=== PATIENT | male | born 1990 | race African-American/Black ===

== ENCOUNTER 2017-10-28 06:18 | Emergency (ER) | payer SELFPAY ==
[2017-10-28 06:22] VITALS: BP 137/86
--- NOTE | 2017-10-28 06:46 | ER Document Report ---
ED General - General Chief Complaint: Toothache Stated Complaint: TOOTH PAIN Notes: 26 year male presents with "extreme pain" rated as severe nonradiating to the right lower molar. Slightly better with dental cement that they placed on today. Taking BC powder. No dentist. No history of dental infections. Denies trismus or put trouble swallowing or fever. TRAVEL OUTSIDE OF THE [place] IN LAST 30 DAYS: No - Related Data Allergies/Adverse Reactions: No Known Allergies Allergy (Verified 10/28/17 06:18) Past Medical History - Social History Smoking Status: Never Smoker Family History: None - Immunizations Hx Diphtheria, Pertussis, Tetanus Vaccination: Yes Review of Systems - Review of Systems Notes: REVIEW OF SYSTEMS GEN: Denies fever, chills, weight loss ENT: Tooth pain mouth pain EYES: Denies blurry vision, eye pain, discharge CV: Denies chest pain, palpitations, edema RESP: Denies cough, shortness of breath, wheezing GI: Denies abdominal pain, nausea, vomiting, diarrhea MSK: Denies joint pain/swelling, edema, SKIN: Denies rash, skin lesions LYMPH: Denies swollen glands/lymph nodes NEURO: Denies headache, focal weakness or numbness, dizziness PSYCH: Denies depression, suicidal or homicidal ideation PHYSICAL EXAMINATION General: No acute distress, well-nourished Head: Atraumatic, normocephalic ENT: Mouth normal, oropharynx moist, lips normal. Decay of the right lower molar with cement in place, no gingival redness or fluctuance. No trismus. Eyes: Conjunctiva normal, pupils equal, lids normal Neck: No JVD, supple, no guarding Resp: No resp distress, equal chest rise GI: Nondistended, no guarding Back: No midline or CVA tenderness Ext: No deformities, no edema Skin: Well-perfused, no rash Neuro: Awake, alert. Face symmetric. Physical Exam - Vital signs Vitals: Temp Pulse Resp BP Pulse Ox 98.3 F 59 L 18 137/86 H 98 10/28/17 06:19 10/28/17 06:19 10/28/17 06:19 10/28/17 06:19 10/28/17 06:19 Course - Re-evaluation Re-evalutation: 10/28/17 06:53 Tooth decay causing dentalgia without signs of infection or deep space involvement. Gabapentin Motrin follow-up dentist. I have discussed with the patient there likely diagnosis, aftercare plan, follow -up plans and my usual and customary return precautions. They verbalized understanding of this. - Vital Signs Vital signs: Temp Pulse Resp BP Pulse Ox 98.3 F 59 L 18 137/86 H 98 10/28/17 06:19 10/28/17 06:19 10/28/17 06:19 10/28/17 06:19 10/28/17 06:19 Discharge - Discharge Clinical Impression: Toothache Condition: Good Disposition: HOME, SELF-CARE Instructions: [facility], Toothache (H) Prescriptions: Gabapentin 300 mg PO TID #30 capsule Ibuprofen 200 mg PO Q6 #14 tablet
[2017-10-28] MEDS ORDERED: OXYCODONE-ACETAMINOPHEN 5-325 MG TABLET PO ONE (07:00)
== END 2017-10-28 07:09 | disposition home or self-care (01) ==
LOC: ER 06:18
DX: K02.9 Dental caries, unspecified (principal); K08.89 Other specified disorders of teeth and supporting structures
CPT/HCPCS: 99282

== ENCOUNTER 2018-03-16 16:32 | Emergency (ER) | payer SELFPAY ==
--- NOTE | 2018-03-16 17:38 | ER Document Report ---
HPI - HPI Patient complains to provider of: Sore throat and fever Onset: Other - 2 days Onset/Duration: Better Pain Level: 4 Context: 27-year-old male complaining of a sore throat, odynophagia, fever for 2 days. He actually feels a little better today. Rapid strep is negative that was done in the emergency department today. No abdominal pain nausea or vomiting. No chest pain or shortness of breath. No rash. Associated Symptoms: None Exacerbated by: Other - Swallowing Relieved by: Denies Similar symptoms previously: No Recently seen / treated by doctor: No - ROS ROS below otherwise negative: Yes Systems Reviewed and Negative: Yes All other systems reviewed and negative - CONSTITUTIONAL Constitutional: REPORTS: Fever - yesterday - EENT EENT: REPORTS: Sore Throat Past Medical History - General Information source: Patient - Social History Smoking Status: Current Every Day Smoker Chew tobacco use (# tins/day): No Frequency of alcohol use: Occasional Drug Abuse: None Lives with: Spouse/Significant other Family History: None Patient has suicidal ideation: No Patient has homicidal ideation: No - Medical History Medical History: Negative Renal/ Medical History: Denies: Hx Peritoneal Dialysis Surgical Hx: Negative - Immunizations Hx Diphtheria, Pertussis, Tetanus Vaccination: Yes Vertical Provider Document - CONSTITUTIONAL Agree With Documented VS: Yes Exam Limitations: No Limitations - INFECTION CONTROL TRAVEL OUTSIDE OF THE [place] IN LAST 30 DAYS: No - HEENT HEENT: Pharyngeal Erythema. negative: Conjuctival Injection, Tympanic Membrane Red Notes: Bilateral exudative tonsils - NECK Neck: Supple, Lymphadenopathy-Left, Lymphadenopathy-Right - RESPIRATORY Respiratory: Breath Sounds Normal, No Respiratory Distress - CARDIOVASCULAR Cardiovascular: Regular Rate, Regular Rhythm - GI/ABDOMEN Gastrointestinal: Abdomen Soft, Abdomen Non-Tender, No Organomegaly, Normal Bowel Sounds - MUSCULOSKELETAL/EXTREMETIES Musculoskeletal/Extremeties: MAEW - NEURO Level of Consciousness: Awake, Alert - DERM Integumentary: Warm, Dry, No Rash Course - Re-evaluation Re-evalutation: 03/16/18 17:44 Rapid strep is positive - Vital Signs Vital signs: Temp Pulse Resp BP Pulse Ox 98.0 F 83 16 153/82 H 98 03/16/18 16:48 03/16/18 16:48 03/16/18 16:48 03/16/18 16:48 03/16/18 16:48 Discharge - Discharge Clinical Impression: Streptococcal sore throat Condition: Good Disposition: HOME, SELF-CARE Instructions: Ibuprofen (General) ([facility]), Penicillin V K ([facility]), Sore Throat ([facility] ), Strep Throat ([facility]) Additional Instructions: chloraseptic spray motrin Penicillin until it is gone Tylenol Return to the emergency room any concerns or symptoms worsen Prescriptions: Ibuprofen [Motrin 800 mg Tablet] 800 mg PO Q8HP PRN #30 tablet PRN Reason: Penicillin V Potassium [Penicillin Vk 500 mg Tablet] 500 mg PO QID #40 tablet
[2018-03-16] MEDS ORDERED: IBUPROFEN 800 MG TABLET PO ONE (17:42)
[2018-03-16] MEDS ORDERED: PENICILLIN V POTASSIUM 500 MG TABLET PO ONE (17:42)
[2018-03-16] MEDS ORDERED: ONDANSETRON 4 MG TAB.RAPDIS PO ONE (17:42)
[2018-03-16 18:37] VITALS: BP 133/75
== END 2018-03-16 18:37 | disposition home or self-care (01) ==
LOC: ER 16:32
DX: J02.0 Streptococcal pharyngitis (principal); R13.10 Dysphagia, unspecified; R50.9 Fever, unspecified; F17.200 Nicotine dependence, unspecified, uncomplicated; R56.9 Unspecified convulsions
CPT/HCPCS: 99283; 87880; S0119

== ENCOUNTER 2019-02-01 20:10 | Emergency (ER) | payer SELFPAY ==
[2019-02-01] MEDS ORDERED: ACETAMINOPHEN 325 MG TABLET PO ONE (23:22)
[2019-02-01] MEDS ORDERED: OXYCODONE HCL IR 5 MG TABLET PO ONE (23:30)
[2019-02-01] MEDS ORDERED: HYDROCODONE/ACETAMINOPHEN 5-325 MG (6 TAB/ER DISP) PO PRN (23:36)
--- NOTE | 2019-02-01 23:36 | ER Document Report ---
ED General - General Chief Complaint: Toothache Stated Complaint: TOOTHACHE Time Seen by Provider: 02/01/19 23:27 Mode of Arrival: Ambulatory Information source: Patient TRAVEL OUTSIDE OF THE [place] IN LAST 30 DAYS: No - HPI Patient complains to provider of: Left lower jaw pain Onset: Other - Past couple of days Onset/Duration: Sudden Quality of pain: Sharp, Stabbing Severity: Severe Pain Level: 5 Associated symptoms: denies: Chills, Fever Exacerbated by: Other - Eating/chewing Relieved by: Denies Similar symptoms previously: No Recently seen / treated by doctor: No Notes: 28-year-old -[place] male coming in today with left lower jaw pain. He has a wisdom tooth with a large cavity that is broken off as well. No fevers or chills. No trouble breathing or swallowing. No submandibular or sublingual swelling. No dysphonia dyspnea or dysphagia - Related Data Allergies/Adverse Reactions: No Known Allergies Allergy (Verified 10/28/17 06:18) Past Medical History - General Information source: Patient - Social History Smoking Status: Current Every Day Smoker Chew tobacco use (# tins/day): No Frequency of alcohol use: Occasional Drug Abuse: Marijuana Family History: None, Reviewed & Not Pertinent Patient has suicidal ideation: No Patient has homicidal ideation: No Renal/ Medical History: Denies: Hx Peritoneal Dialysis - Immunizations Hx Diphtheria, Pertussis, Tetanus Vaccination: Yes Review of Systems - Review of Systems Notes: Constitutional: No fevers. No chills. EENT: No eye redness. No eye pain. No ear pain. No sore throat. Positive severe dental pain Cardiovascular: No chest pain. No palpitations. Respiratory: No cough. No shortness of breath. No respiratory distress. Gastrointestinal: No abdominal pain. No nausea, vomiting, or diarrhea. Genitourinary: Atraumatic. No lesions. No pain. No discharge. Musculoskeletal: Atraumatic. No swelling. No deformities. Skin: No rash or lesions. Lymphatic: No swollen lymph nodes. Neurologic: No headache. No syncope. Psychiatric: No suicidal or homicidal ideation. Physical Exam - Vital signs Vitals: Temp Pulse Resp BP Pulse Ox 97.9 F 64 16 145/76 H 99 02/01/19 20:27 02/01/19 20:27 02/01/19 20:27 02/01/19 20:27 02/01/19 20:27 - Notes Notes: General: Well-developed, well-nourished. In no acute distress. Non-toxic appear ing. Cardiac: Well-perfused. Regular rate and rhythm. No murmurs, rubs, or gallops. Pulmonary: No respiratory distress. No cyanosis. Bilateral lung fiels are clear to auscultation. Abdominal: Non-distended. Non-rigid. Bowels sounds are present in all four quadrants. No guarding or rebound. HEENT: Head is atraumatic. Conjunctivae not reddened. No tearing. PERRL. EOMI. Orbits atraumatic. No periorbital swelling or erythema. Large cavity and left lower wisdom tooth. Fragments broken off from the tooth as well. No visible abscess locally. No gingival swelling. No submandibular or sublingual swelling. No dysphonia dyspnea or dysphagia Neck: Supple. No adenopathy. No meningismus. Dermatologic: Warm with good turgor. No rash. Atraumatic. Chest: Atraumatic. No chest wall tenderness to palpation. Musculoskeletal: Moves all extremities well. No range of motion deficits. no muscular or joint tenderness. No paraspinal muscle tenderness. no midline spinal tenderness or step-off. Genitourinary: Examination deferred Neurologic: No gross neurologic deficits. Psychiatric: Normal mood. Course - Vital Signs Vital signs: Temp Pulse Resp BP Pulse Ox 97.9 F 68 16 145/76 H 99 02/01/19 20:28 02/01/19 20:28 02/01/19 20:28 02/01/19 20:28 02/01/19 20:28 Discharge - Discharge Clinical Impression: Dental abscess, Elevated blood pressure reading Condition: Good Disposition: HOME, SELF-CARE Instructions: [facility], Penicillin V K ([facility]), Toothache ([facility]) Additional Instructions: Help with a dentist as soon as possible. I will give the name of a local clinic there may be able to help you. Prescriptions: Penicillin V Potassium [Penicillin Vk 500 mg Tablet] 500 mg PO QID #40 tablet Referrals: [facility] [Provider Group] - Follow up tomorrow
[2019-02-01 23:59] VITALS: BP 135/88
== END 2019-02-01 23:57 | disposition home or self-care (01) ==
LOC: ER 20:10
DX: K04.7 Periapical abscess without sinus (principal); K02.9 Dental caries, unspecified; K08.89 Other specified disorders of teeth and supporting structures; R03.0 Elevated blood-pressure reading, without diagnosis of hypertension; F17.200 Nicotine dependence, unspecified, uncomplicated
CPT/HCPCS: 99282